=== PATIENT | female | born 1995 | race Caucasian/White ===

== ENCOUNTER 2020-10-30 20:35 | Emergency (ER) | payer OTHER ==
[~2020-10-30] VITALS: Ht 157.5 cm; Wt 51.3 kg
[2020-10-30 20:35] VITALS: BP 120/77
--- NOTE | 2020-10-30 20:40 | NUR ---
pt bibself c/o positive covid test. Pt attached to monitor and pox. pt breathing evenly and unlabored. Pt attached to monitor, o2 saturation 99%. Pt given blanket and call light within reach.
[2020-10-30] MEDS ORDERED: ACETAMINOPHEN 325 MG TABLET PO ONE (23:00)
[2020-10-30] MEDS ORDERED: ACETAMINOPHEN 325 MG TABLET ONE (23:31)
--- NOTE | 2020-10-30 23:54 | NUR ---
Call from lab. Rapid covid positive.
--- NOTE | 2020-10-31 00:07 | NUR ---
Patient discharged to home in stable condition. Written and verbal after care instructions given. Patient verbalizes understanding of instruction.Pt ambulatory with a steady gait
== END 2020-10-31 00:07 | disposition home or self-care (01) ==
LOC: ER 20:39
DX: U07.1 COVID-19 (principal); R00.0 Tachycardia, unspecified
CPT/HCPCS: 71045; 87426; 99284; C9803